=== PATIENT | female | born 1980 | race Caucasian/White ===

== ENCOUNTER 2021-12-26 06:24 | Emergency (ER) | payer OTHER, SELFPAY ==
--- NOTE | ~2021-12-26 | US_ITS ---
EXAMINATION: ULTRASOUND RENAL LEFT CLINICAL INFORMATION: Left flank pain. COMPARISON: CT from 01/11/2020 TECHNIQUE: Targeted sonographic evaluation of the left kidney only. FINDINGS: The left kidney is normal in size measuring 11 x 5.5 x 4.3 cm. There is normal shape and echogenicity. No hydronephrosis. No nephrolithiasis. No renal mass. US/US renal LT IMPRESSION: Normal left kidney.
--- NOTE | ~2021-12-26 | CT_ITS ---
EXAMINATION: CT ABDOMEN AND PELVIS WITHOUT CONTRAST CLINICAL INFORMATION: Left-sided abdominal pain COMPARISON: 01/11/2020 TECHNIQUE: Multidetector volumetric imaging was performed from the superior aspect of the liver through the pubic symphysis. Sagittal and coronal reformatted images were obtained on the technologist's workstation. This CT examination was performed using dose optimization techniques as appropriate, variously including the following: *Automated exposure control *Adjustment of mA and/or kV according to patient size (this includes techniques or standardized protocols for targeted exams where dose is matched to indication/reason for exam; i.e. extremities or head) *Use of iterative reconstruction technique DLP: 649 mGy-cm FINDINGS: LUNG BASES: Minimal bibasilar atelectasis. The visualized cardiac structures are unremarkable. LIVER, GALLBLADDER, AND BILIARY TREE: The liver is normal in size, shape, and attenuation. No focal hepatic lesion or biliary ductal dilatation is present. The gallbladder is unremarkable with no evidence of radiopaque gallstones, gallbladder wall thickening, or obvious pericholecystic inflammatory changes. PANCREAS: Unremarkable. SPLEEN: Unremarkable. ADRENAL GLANDS: Unremarkable. KIDNEYS AND URETERS: The kidneys are normal in size, shape, and attenuation. There is mild left hydroureteronephrosis. There are 2 calculi seen in the distal left ureter immediately proximal to the ureterovesicular junction. These measure 0.4 cm and 0.5 cm. Mild perinephric stranding on the left. There is a left lower pole 0.3 cm calculus is 10 cm from the posterior axillary line. Right lower pole 0.4 cm calculus which is 10 cm from the posterior axillary line. No right hydronephrosis. BLADDER: Unremarkable. GASTROINTESTINAL TRACT: The stomach is unremarkable. Normal caliber small bowel. No obstruction. Normal appendix. No colonic wall thickening or acute inflammation. No free air or free fluid. ABDOMINAL WALL: No significant hernia is appreciated. LYMPH NODES: Normal. VASCULAR: Normal caliber aorta with mild atherosclerotic calcification. PELVIC VISCERA: Anteverted uterus with IUD in place. No adnexal mass. OSSEOUS STRUCTURES: No acute or suspicious osseous abnormality. CT/CT abdomen pelvis wo con IMPRESSION: Mild left hydroureteronephrosis. There are 2 distal left ureteral calculi. Additional nonobstructing bilateral renal calculi noted. Fleischner guidelines were followed.
[2021-12-26 07:31] VITALS: BP 139/69; PULSE 73; RESP 16; TEMP 36.6; O2SAT 99; BMI 34.7
[2021-12-26 07:44] LABS: Basophils Percent Auto 0.4 % (0-2); Eosinophils Percent Auto 0.2 % (0-4); Hematocrit 41.9 % (37.0-47.0); Hemoglobin 13.8 g/dl (12.0-16.0); Imm Gran Abs Auto 0.04 X10*3/uL (0.00-0.03); Imm Gran Pct Auto 0.4 % (0.0-0.4); Lymphocytes Absolute Auto 0.5 X10*3/uL (1.2-4.9); MANUAL DIFF FLAG SCAN; Mean Corpuscular HGB Conc 32.9 g/dl (31.0-35.0); Mean Corpuscular Volume 85.2 fL (80.0-98.0); Mean Platelet Volume 9.3 fL (9.4-12.3); Monocytes Absolute Auto 0.4 X10*3/uL (0.1-1.2); Monocytes Percent Auto 3.5 % (2-11); Neutrophils Absolute Auto 9.3 x10*3/uL (2.0-8.3); Neutrophils Percent Auto 90.5 % (45-73); Platelet Count 214 X10*3/uL (160-400); Red Blood Count 4.92 X10*6/uL (4.20-5.50); Red Cell Distribution Width 12.7 % (11.0-16.0); SCAN SMEAR FLAG 1; White Blood Count 10.3 X10*3/uL (4.8-10.8)
[2021-12-26 07:54] VITALS: BP 133/76; PULSE 78; RESP 16; TEMP 36.9; O2SAT 100
[2021-12-26 08:01] LABS: Anion Gap 12 (12-20); Blood Urea Nitrogen 11 mg/dL (9-16); Calcium 9.3 mg/dL (8.4-10.2); Carbon Dioxide 27 mmol/L (22-29); Chloride 107 mmol/L (96-108); Creatinine Clr Calc Pharmacy 75.9; Estimated Glomerular Filt Rate > 60; Glucose Random 104 mg/dL (60-115); Potassium 4.7 mmol/L (3.3-5.1); Sodium 141 mmol/L (135-145)
[2021-12-26 08:04] LABS: SLIDE REVIEW VERIFIED
--- NOTE | 2021-12-26 08:25 | ED.ABDPAIN ---
HPI - Abdominal Pain General Chief Complaint: Back Pain/Injury Stated Complaint: kidney stones Time Seen by Provider: 12/26/21 08:13 Source: patient Mode of arrival: ambulatory Limitations: no limitations History of Present Illness HPI narrative: 41 yo female with hx of PCOS, kidney stones hx of ureteral stent, childhood leukemia, here with c/o abrupt onset L flank pain and n/v that woke her up around 4/5am this AM. Feels like a stone to her. MD elicited complaint: flank pain Pertinent past history: kidney stones Onset (ago): hour(s) (few) Pain Consistency: other (seems to have improved a little) Location: L flank Severity: moderate Quality: stabbing Radiation: LLQ Migration to: LLQ Exacerbating factors: nothing Relieving factors: nothing Context: history of similar episodes Associated symptoms: nausea, vomiting and diarrhea Related Data Home Medications Medication Instructions Recorded Confirmed albuterol sulfate 90 mcg/actuation 2 puff inhalation QID PRN 12/26/21 12/26/21 aerosol inhaler (ProAir HFA) Shortness Of Breath Or Wheezing fluticasone propionate 50 2 spray intranasal DAILY PRN 12/26/21 12/26/21 mcg/actuation nasal Allergy Symptoms spray,suspension loratadine 10 mg tablet (Claritin) 10 mg PO DAILY 12/26/21 12/26/21 montelukast 10 mg tablet 1 tab PO BEDTIME 12/26/21 12/26/21 naproxen sodium 220 mg tablet 220 mg PO Q12H PRN Pain 12/26/21 12/26/21 Previous Rx's Medication Instructions Recorded ketorolac 10 mg tablet 10 mg PO TID PRN pain 5 days #15 12/26/21 tabs ondansetron 4 mg disintegrating 4 mg PO Q8H PRN nausea and 12/26/21 tablet vomiting #20 tabs tamsulosin 0.4 mg capsule 0.4 mg PO DAILY 7 days #7 caps 12/26/21 tramadol 50 mg tablet 50 mg PO TID PRN pain 3 days #10 12/26/21 tabs Allergies Allergy/AdvReac Type Severity Reaction Status Date / Time Penicillins [PENICILLINS] Allergy Severe HIVES DIFF Verified 12/26/21 07:31 BREATHING prednisone [PREDNISONE] AdvReac Severe AGITATION Verified 12/26/21 07:31 Review of Systems Review of Systems Constitutional : No Weight loss, No Fever, No Chills ENT/Mouth : No sore throat, No Rhinorrhea Eyes: No Swelling, No Redness Cardiovascular : No Chest Pain, No SOB, NoEdema Respiratory : No Cough, No Sputum, No Wheezing Gastrointestinal : Positive Nausea, Positive Vomiting, pos Diarrhea, positive abdominal Pain, No Hematochezia, No Melena Genitourinary : No Dysuria, No Urinary Frequency, No Hematuria, No Urgency Musculoskeletal : No joint pain, No Myalgias, No Joint Swelling Skin : No Skin Lesions, No rash Neuro : No Weakness, No Numbness, No Dizziness, No Headache Psych : No Anxiety/Panic, No Depression Heme/Lymph: No Bruising, No Lymphadenopathy Endocrine : No Polyuria, No Polydipsia All other systems reviewed and are negative. [facility] Past Medical History Attestation statement: The following information was validated with the patient. Medical History Kidney stone PCOS (polycystic ovarian syndrome) Social History Social History Alcohol intake: current Alcohol intake frequency: holidays/special occasions only Patient Tobacco Use Status: Current someday Tobacco user Smoked in Last 30 Days: Yes Use of substances other than those prescribed or required for medical reasons: No Advance Directives: No Advance Directives Information Provided: No Physical Exam ED Vital Signs: Vital Signs - 24 hr 12/26/21 07:31 12/26/21 07:54 12/26/21 12:31 Temperature 97.9 F 98.5 F Pulse Rate 73 78 67 Respiratory Rate 16 16 14 Blood Pressure 139/69 133/76 122/75 Pulse Oximetry 99 100 100 Oxygen Delivery Method Room Air Room Air Room Air BMI result Body Mass Index 34.7 Appearance: Alert. Oriented X3. No acute distress. Eyes: Pupils equal, round and reactive to light. ENT: Pharynx normal. Neck: Normal inspection. Neck supple. CVS: Normal heart rate and rhythm. Pulses normal. Respiratory: No respiratory distress. Breath sounds normal. Abdomen: Soft and mild L sided abdominal ttp. Skin: Skin warm and dry. Normal skin color. Normal skin turgor. Extremities: No lower extremity edema. No calf ttp Neuro: Oriented X 3. No motor deficit. No sensory deficit. Course Course Course Narrative: CT scan ordered - US negative, cannot urinate pain well controlled stable for DC at this time can follow up with urology next week given precautions to return able to void MDM - Abdominal Pain MDM Narrative Medical decision making narrative: 41 yo female with hx of PCOS, kidney stones hx of ureteral stent, childhood leukemia here with L flank pain and n/v that feels like a stone to her. At this time labs, UA, US to evaluate for renal colic. IV toradol for pain ordered. Dispo per results and findings. Lab Data Result diagrams: 12/26/21 07:37 12/26/21 07:37 Labs: Lab Results 12/26/21 12/26/21 12/26/21 Range/Units 07:37 07:37 10:12 WBC 10.3 (4.8-10.8) X10*3/uL RBC 4.92 (4.20-5.50) X10*6/uL Hgb 13.8 (12.0-16.0) g/dl Hct 41.9 (37.0-47.0) % MCV 85.2 (80.0-98.0) fL MCH 28.0 (27.0-33.0) pg MCHC 32.9 (31.0-35.0) g/dl RDW 12.7 (11.0-16.0) % Plt Count 214 (160-400) X10*3/uL MPV 9.3 L (9.4-12.3) fL Immature Gran % (Auto) 0.4 (0.0-0.4) % Neut % (Auto) 90.5 H (45-73) % Lymph % (Auto) 5.0 L (20-40) % [place] % (Auto) 3.5 (2-11) % Eos % (Auto) 0.2 (0-4) % Baso % (Auto) 0.4 (0-2) % Lymph # (Auto) 0.5 L (1.2-4.9) X10*3/uL [place] # (Auto) 0.4 (0.1-1.2) X10*3/uL Eos # (Auto) 0.0 (0.0-0.4) X10*3/uL Baso # (Auto) 0.0 (0.0-0.2) X10*3/uL Abs Immat Gran (auto) 0.04 H (0.00-0.03) X10*3/uL Absolute Neuts (auto) 9.3 H (2.0-8.3) x10*3/uL Absolute Nucleated RBC 0.000 (0.0-0.012) X10*3/uL Nucleated RBC % (auto) 0.0 (0.0-0.2) /100WBC Smear Tech's Comments VERIFIED Sodium 141 (135-145) mmol/L Potassium 4.7 (3.3-5.1) mmol/L Chloride 107 (96-108) mmol/L Carbon Dioxide 27 (22-29) mmol/L Anion Gap 12 (12-20) BUN 11 (9-16) mg/dL Creatinine 0.87 (0.5-1.4) mg/dL Estim Creat Clear Calc 75.9 Estimated GFR > 60 Random Glucose 104 (60-115) mg/dL Calcium 9.3 (8.4-10.2) mg/dL Urine Color Yellow Urine Appearance Clear Urine pH 8.0 (5.0-8.0) Ur Specific [place] <= 1.005 (1.005-1.025) Urine Protein Negative (Neg-Trace) mg/dL Urine Glucose (UA) Negative (Negative) mg/dL Urine Ketones Negative (Negative) mg/dL Urine Blood Small (1+) H (Negative) Urine Nitrite Negative (Negative) Ur Leukocyte Esterase Negative (Negative) Urine RBC 0-2 (0-2) /HPF Urine WBC 0-5 (0-5) /HPF Ur Squamous Epith Cells 0-2 (0-2) /HPF Urine Bacteria None Seen (None Seen) Hyaline Casts 0-2 (0-2) /LPF Urine Test (NEGATIVE) 12/26/21 Range/Units 10:12 WBC (4.8-10.8) X10*3/uL RBC (4.20-5.50) X10*6/uL Hgb (12.0-16.0) g/dl Hct (37.0-47.0) % MCV (80.0-98.0) fL MCH (27.0-33.0) pg MCHC (31.0-35.0) g/dl RDW (11.0-16.0) % Plt Count (160-400) X10*3/uL MPV (9.4-12.3) fL Immature Gran % (Auto) (0.0-0.4) % Neut % (Auto) (45-73) % Lymph % (Auto) (20-40) % [place] % (Auto) (2-11) % Eos % (Auto) (0-4) % Baso % (Auto) (0-2) % Lymph # (Auto) (1.2-4.9) X10*3/uL [place] # (Auto) (0.1-1.2) X10*3/uL Eos # (Auto) (0.0-0.4) X10*3/uL Baso # (Auto) (0.0-0.2) X10*3/uL Abs Immat Gran (auto) (0.00-0.03) X10*3/uL Absolute Neuts (auto) (2.0-8.3) x10*3/uL Absolute Nucleated RBC (0.0-0.012) X10*3/uL Nucleated RBC % (auto) (0.0-0.2) /100WBC Smear Tech's Comments Sodium (135-145) mmol/L Potassium (3.3-5.1) mmol/L Chloride (96-108) mmol/L Carbon Dioxide (22-29) mmol/L Anion Gap (12-20) BUN (9-16) mg/dL Creatinine (0.5-1.4) mg/dL Estim Creat Clear Calc Estimated GFR Random Glucose (60-115) mg/dL Calcium (8.4-10.2) mg/dL Urine Color Urine Appearance Urine pH (5.0-8.0) Ur Specific [place] (1.005-1.025) Urine Protein (Neg-Trace) mg/dL Urine Glucose (UA) (Negative) mg/dL Urine Ketones (Negative) mg/dL Urine Blood (Negative) Urine Nitrite (Negative) Ur Leukocyte Esterase (Negative) Urine RBC (0-2) /HPF Urine WBC (0-5) /HPF Ur Squamous Epith Cells (0-2) /HPF Urine Bacteria (None Seen) Hyaline Casts (0-2) /LPF Urine Test NEGATIVE (NEGATIVE) Discharge Plan Discharge Clinical Impression: Ureterolithiasis Patient Disposition: Home, Self-Care Instructions: Renal Colic (ED), Ureteral Stones (ED) Additional Instructions: return to ED for any worsening symptoms or concerns if you develop fevers, worsening pain, unable to urinate please return if you do not feel like you have passed the stone by next Wednesday please call Urologist Prescriptions: New tamsulosin 0.4 mg capsule 0.4 mg PO DAILY 7 Days Qty: 7 0RF ondansetron 4 mg tablet,disintegrating 4 mg PO Q8H PRN (Reason: nausea and vomiting) Qty: 20 0RF ketorolac 10 mg tablet 10 mg PO TID PRN (Reason: pain) 5 Days Qty: 15 0RF Rx Instructions: do not take with other NSAIDs given IV dose of toradol in ED tramadol 50 mg tablet 50 mg PO TID PRN (Reason: pain) 3 Days Qty: 10 0RF No Action montelukast 10 mg tablet 1 tab PO BEDTIME albuterol sulfate [ProAir HFA] 90 mcg/actuation HFA aerosol inhaler 2 puff inhalation QID PRN (Reason: Shortness Of Breath Or Wheezing) fluticasone propionate 50 mcg/actuation spray,suspension 2 spray intranasal DAILY PRN (Reason: Allergy Symptoms) naproxen sodium 220 mg Tablet 220 mg PO Q12H PRN (Reason: Pain) loratadine [Claritin] 10 mg Tablet 10 mg PO DAILY Referrals: Hunter Traore MD [Physician] - (next week if not better) Stand Alone Forms: Work/School Release
[2021-12-26] MEDS: Ketorolac Tromethamine 30 MG/ML VIAL IVPUSH (08:54)
[2021-12-26] MEDS: Lactated Ringers 1,000 ML 999 ML IV (08:54)
[2021-12-26] MEDS: ondansetron HCL 4 MG/2 ML VIAL IVPUSH (08:54)
[2021-12-26 10:39] LABS: Appearance Urine Clear; Color Urine Yellow; Glucose Urine UA Negative (Negative); Leukocyte Esterase Urine Negative (Negative); Nitrite Urine Negative (Negative); Specific Gravity - Urine <= 1.005 (1.005-1.025); Urine Blood Small (1+) (Negative); Urine Ketones Negative (Negative); Urine Protein Negative (Neg-Trace)
[2021-12-26 10:41] LABS: UPreg QC Valid YES; Urine Pregnancy NEGATIVE (NEGATIVE)
--- NOTE | 2021-12-26 10:46 | PHA.MEDREC ---
Pharmacy Consult ? Medication Reconciliation Pharmacy has completed the medication reconciliation.
[2021-12-26 10:55] LABS: Bacteria Urine None Seen (None Seen); Hyaline Casts Urine 0-2 /LPF (0-2); RBC Urine 0-2 /HPF (0-2); Squamous Epithelial Cell Urine 0-2 /HPF (0-2); WBC Urine 0-5 /HPF (0-5)
[2021-12-26 12:31] VITALS: BP 122/75; PULSE 67; RESP 14; O2SAT 100
[2021-12-26] MEDS: Tamsulosin HCL 0.4 MG CAPSULE PO (12:46)
== END 2021-12-26 13:50 | disposition home or self-care (01) ==
PROVIDERS: Emergency Provider Emergency Medicine; PCP Internal Medicine
DX: N20.1 Calculus of ureter (principal); M54.50 Low back pain, unspecified; R11.2 Nausea with vomiting, unspecified; Z79.899 Other long term (current) drug therapy; F17.200 Nicotine dependence, unspecified, uncomplicated; Z71.6 Tobacco abuse counseling
CPT/HCPCS: 36415; 74176; 76775; 80048; 81001; 81025; 85025; 96361; 96374; 96375; 99284; J1885; J2405

== ENCOUNTER 2022-07-17 14:55 | Outpatient (REF) | payer OTHER, MEDICAID, SELFPAY ==
--- NOTE | ~2022-07-17 | US_ITS ---
EXAMINATION: US RETROPERITONEAL LIMITED (RENAL ONLY) CLINICAL INFORMATION: Calculus of kidney. COMPARISON: Ultrasound retroperitoneal limited (renal only) 12/26/2021. CT abdomen and pelvis 12/26/2021. Ultrasound abdomen 01/11/2020. TECHNIQUE: Real-time imaging of the kidneys. FINDINGS: RIGHT KIDNEY: 11.3 x 5.3 x 5.0 cm (SAG x AP x TRV). The kidney is normal in size, contour, and echogenicity. Renal cortical thickness is normal. No focal parenchymal lesions or hydronephrosis. Nonobstructive calculus in the lower pole measuring 0.5 cm and mid pole measuring 0.3 cm. LEFT KIDNEY: 11.6 x 5.2 x 4.4 cm (SAG x AP x TRV). The kidney is normal in size, contour, and echogenicity. Renal cortical thickness is normal. No focal parenchymal lesions or hydronephrosis. Nonobstructive calculus in the lower pole measuring 0.4 cm. US/US renal BI IMPRESSION: Nonobstructive bilateral renal calculi.
== END 2022-07-17 14:56 | disposition home or self-care (01) ==
LOC: HO.US 14:55
PROVIDERS: PCP Internal Medicine; Visit Provider Urology
DX: N20.0 Calculus of kidney (principal)
CPT/HCPCS: 76775

== ENCOUNTER → 2022-09-03 08:31 | Outpatient (BNVA) | payer OTHER, MEDICAID, SELFPAY | PROVIDERS: PCP Internal Medicine; Visit Provider Urology ==

== ENCOUNTER 2022-10-09 08:53 | Emergency (ER) | payer OTHER, SELFPAY ==
[2022-10-09 08:56] VITALS: BP 152/87; PULSE 100; RESP 19; TEMP 36.6; O2SAT 100; BMI 33.9
--- NOTE | 2022-10-09 09:10 | ED_ITS ---
HPI - Female Genitourinary General Chief complaint: Urogenital-Female Stated complaint: kidney stones Time Seen by Provider: 10/09/22 09:06 Source: patient Mode of arrival: ambulatory Limitations: no limitations History of Present Illness HPI Narrative: Patient history of kidney stone status post lithotripsy had ultrasound done in 07/23 when only stones in the kidneys were seen comes here for last 24 hours of dysuria frequency burning sensation and right flank pain no nausea no vomiting no hematuria no fever or chills Related Data Home Medications Medication Instructions Recorded Confirmed albuterol sulfate 90 mcg/actuation 2 puff inhalation QID PRN 12/26/21 01/28/22 aerosol inhaler (ProAir HFA) Shortness Of Breath Or Wheezing fluticasone propionate 50 2 spray intranasal DAILY PRN 12/26/21 01/28/22 mcg/actuation nasal Allergy Symptoms spray,suspension loratadine 10 mg tablet (Claritin) 10 mg PO DAILY 12/26/21 01/28/22 montelukast 10 mg tablet 1 tab PO BEDTIME 12/26/21 01/28/22 naproxen sodium 220 mg tablet 220 mg PO Q12H PRN Pain 12/26/21 01/28/22 methocarbamol 750 mg tablet 750 mg PO BID 01/26/22 01/28/22 Previous Rx's Medication Instructions Recorded ondansetron 4 mg disintegrating 4 mg PO Q8H PRN nausea and 12/26/21 tablet vomiting #20 tabs tamsulosin 0.4 mg capsule 0.4 mg PO DAILY 7 days #7 caps 01/01/22 pyridoxine (vitamin B6) 100 mg 100 mg PO DAILY 90 days #90 tabs 01/28/22 tablet tramadol 50 mg tablet 50 mg PO Q6H PRN pain #20 tabs 10/09/22 Allergies Allergy/AdvReac Type Severity Reaction Status Date / Time Penicillins [PENICILLINS] Allergy Severe HIVES DIFF Verified 10/09/22 08:56 BREATHING prednisone [PREDNISONE] AdvReac Severe AGITATION Verified 10/09/22 08:56 Review of Systems Review of Systems: Yes all other systems are reviewed and are negative PMFSH Past Medical History Medical History Kidney stone PCOS (polycystic ovarian syndrome) Social History Social History Alcohol intake: current Alcohol intake frequency: does not drink Patient Tobacco Use Status: Current someday Tobacco user Smoked in Last 30 Days: Yes Use of substances other than those prescribed or required for medical reasons: No Advance Directives: No Patient : No Physical Exam Vital Signs: Vital Signs: Last Vital Signs Temp 98 F 10/09/22 08:56 Pulse 100 10/09/22 08:56 Resp 19 10/09/22 08:56 BP 152/87 H 10/09/22 08:56 Pulse Ox 100 10/09/22 08:56 O2 Del Method Room Air 10/09/22 08:56 BMI result Body Mass Index 33.9 Appearance: Alert. Oriented X3. No acute distress. ENT: Pharynx normal. Oral Mucosa moist Neck: Normal inspection. Neck supple. CVS: Normal heart rate and rhythm. Pulses normal. Respiratory: No respiratory distress. Equal air entry bilateral, no wheezing/rales/rhonchi Abdomen: Soft and nontender. Bowel sounds are present, no mass palpable, mild right CVA tenderness Skin: Skin warm and dry. Normal skin color. Normal skin turgor. Extremities: No lower extremity edema. No calf tenderness Neuro: Oriented X 3. No motor deficit. Medications Administered Discontinued Medications Generic Name Dose Route Start Last Admin Trade Name Freq PRN Reason Stop Dose Admin Ondansetron HCl 4 mg 10/09/22 09:18 10/09/22 09:26 Ondansetron Odt 4 Mg Tab.Rapdis TRANSLINGU 10/09/22 09:19 4 mg ONCE ONE Administration Oxycodone HCl 10 mg 10/09/22 09:18 10/09/22 09:26 Oxycodone Hcl Immed Release 5 Mg Tablet PO 10/09/22 09:19 5 mg ONCE ONE Administration Tamsulosin HCl 0.4 mg 10/09/22 09:18 10/09/22 09:27 Tamsulosin Hcl 0.4 Mg Capsule PO 10/09/22 09:19 0.4 mg ONCE ONE Administration Medical Decision Making Admission/Observation Patient UA negative for blood or UTI patient feels comfortable after pain management will discharge patient home on tramadol likely patient has renal colic/passed kidney stone Lab Data [facility] Lab Attestation statement: I reviewed the patient's lab results. Labs: Lab Results 10/09/22 Range/Units 09:29 Urine Color Yellow Urine Appearance Cloudy Urine pH 7.5 (5.0-9.0) Ur Specific [place] 1.020 (1.005-1.025) Urine Protein Negative (Neg-Trace) mg/dL Urine Glucose (UA) Negative (Negative) mg/dL Urine Ketones Negative (Negative) mg/dL Urine Blood Negative (Negative) Urine Nitrite Negative (Negative) Ur Leukocyte Esterase Negative (Negative) Discharge Plan Discharge Clinical Impression: Renal colic on right side Patient Disposition: Home, Self-Care Instructions: Renal Colic (ED) Additional Instructions: At this time there is no convincing lab showed suggestive of obstructive kidney stone Take pain medication as prescribed and follow-up with urologist Report to the ER if worsening of the pain Prescriptions: New tramadol 50 mg tablet 50 mg PO Q6H PRN (Reason: pain) Qty: 20 0RF No Action tamsulosin 0.4 mg capsule 0.4 mg PO DAILY 7 Days Qty: 7 0RF montelukast 10 mg tablet 1 tab PO BEDTIME albuterol sulfate [ProAir HFA] 90 mcg/actuation HFA aerosol inhaler 2 puff inhalation QID PRN (Reason: Shortness Of Breath Or Wheezing) fluticasone propionate 50 mcg/actuation spray,suspension 2 spray intranasal DAILY PRN (Reason: Allergy Symptoms) naproxen sodium 220 mg Tablet 220 mg PO Q12H PRN (Reason: Pain) loratadine [Claritin] 10 mg Tablet 10 mg PO DAILY ondansetron 4 mg tablet,disintegrating 4 mg PO Q8H PRN (Reason: nausea and vomiting) Qty: 20 0RF methocarbamol 750 mg tablet 750 mg PO BID pyridoxine (vitamin B6) 100 mg tablet 100 mg PO DAILY 90 Days Qty: 90 1RF
--- NOTE | 2022-10-09 09:19 | PC.NURSE ---
Pt reports urinary sx x 24 hours including, urgency and frequency without completely emptying bladder with zinging pain up to right flank. Denies fevers or chills. States nausea and little diarrhea. Has Lithotripsy scheduled for November 04 for known stones with Dr Dupont. Juanita pwd. Speaking full sentences. Plan for UA and PO meds at this time
[2022-10-09] MEDS: Ondansetron ODT 4 MG TAB.RAPDIS TRANSLINGU (09:26)
[2022-10-09] MEDS: oxyCODONE HCl Immed Release 5 MG TABLET 10 MG PO (09:26)
[2022-10-09] MEDS: Tamsulosin HCL 0.4 MG CAPSULE PO (09:27)
[2022-10-09 09:51] LABS: Appearance Urine Cloudy; Color Urine Yellow; Glucose Urine UA Negative (Negative); Leukocyte Esterase Urine Negative (Negative); Nitrite Urine Negative (Negative); PH 7.5 (5.0-9.0); Urine Blood Negative (Negative); Urine Ketones Negative (Negative); Urine Protein Negative (Neg-Trace)
== END 2022-10-09 11:51 | disposition home or self-care (01) ==
PROVIDERS: Emergency Provider Internal Medicine; PCP Internal Medicine
DX: K80.50 Calculus of bile duct without cholangitis or cholecystitis without obstruction (principal); F17.210 Nicotine dependence, cigarettes, uncomplicated; Z71.6 Tobacco abuse counseling; Z79.899 Other long term (current) drug therapy
CPT/HCPCS: 81003; 99283; 99284

== ENCOUNTER 2022-12-21 08:14 | Outpatient (REF) | payer OTHER, SELFPAY ==
--- NOTE | ~2022-12-21 | CT_ITS ---
EXAMINATION: CT ABDOMEN AND PELVIS WITHOUT CONTRAST CLINICAL INFORMATION: Kidney stone COMPARISON: Previous CT of the abdomen and pelvis December 2021 and renal ultrasound July 2022 TECHNIQUE: Multidetector volumetric imaging was performed from the superior aspect of the liver through the pubic symphysis. Sagittal and coronal reformatted images were obtained on the technologist's workstation. This CT examination was performed using dose optimization techniques as appropriate, variously including the following: *Automated exposure control *Adjustment of mA and/or kV according to patient size (this includes techniques or standardized protocols for targeted exams where dose is matched to indication/reason for exam; i.e. extremities or head) *Use of iterative reconstruction technique DLP: 516 mGy-cm FINDINGS: LUNG BASES: The visualized lung bases are unremarkable. LIVER, GALLBLADDER, AND BILIARY TREE: The liver is normal in size, shape, and attenuation. No focal hepatic lesion or biliary ductal dilatation is present. The gallbladder is unremarkable with no evidence of radiopaque gallstones, gallbladder wall thickening, or obvious pericholecystic inflammatory changes. PANCREAS: Unremarkable. SPLEEN: Unremarkable. ADRENAL GLANDS: Unremarkable. KIDNEYS AND URETERS: Small 1 to 2 mm stones in the mid and lower pole of the right kidney. The left kidney is normal. No hydronephrosis, ureteral dilatation or ureteral stone. BLADDER: Unremarkable. GASTROINTESTINAL TRACT: The small and large bowel are unremarkable. The appendix is unremarkable. ABDOMINAL WALL: No significant hernia is appreciated. LYMPH NODES: Normal. VASCULAR: Unremarkable. PELVIC VISCERA: IUD in the uterus in satisfactory position. OSSEOUS STRUCTURES: Degenerative disc changes at L5-S1. CT/CT abdomen pelvis wo IV con IMPRESSION: Small right renal stones. Fleischner guidelines were followed.
== END 2022-12-21 08:15 | disposition home or self-care (01) ==
LOC: HO.CT 08:14
PROVIDERS: PCP Internal Medicine; Visit Provider Urology
DX: N20.0 Calculus of kidney (principal)
CPT/HCPCS: 74176

== ENCOUNTER 2023-10-07 20:43 | Emergency (ER) | payer OTHER, SELFPAY ==
--- NOTE | ~2023-10-07 | US_ITS ---
EXAMINATION: US VENOUS ULTRASOUND WITH DOPPLER LOWER EXTREMITY, RIGHT CLINICAL INFORMATION: Bridger seen, swelling, pain. COMPARISON: None available. TECHNIQUE: Ultrasound of the deep veins is performed from the hip to the calf with compression sonography and color and pulse Doppler assessment. Spectral analysis with color-flow imaging is performed. FINDINGS: There is normal venous compression and respiratory variation and augmented flow. The visualized common femoral vein, superficial femoral vein, profunda femoral vein, popliteal vein, and the trifurcation region shows no evidence of deep venous thrombosis. There is no significant popliteal fossa cyst. If the patient's symptoms persist, followup ultrasound in 5 days 7 days might be of value to exclude proximal propagation from a non-visualized calf vein. US/US venous duplex LE RT IMPRESSION: No DVT demonstrated in the right lower extremity.
--- NOTE | ~2023-10-07 | XR_ITS ---
X-RAY RIGHT ANKLE AND RIGHT FOOT CLINICAL HISTORY: Bruising. COMPARISON: No relevant prior studies are available for comparison. TECHNIQUE: 2 views of the right ankle and 3 views of the right foot. FINDINGS: Soft tissue swelling more noticeable in the medial right ankle and plantar surface of the heel. No acute osseous abnormalities. No fractures or malalignment. No unexpected radiopaque foreign bodies. XR/XR foot RT min 3V IMPRESSION: Soft tissue swelling but no acute osseous abnormalities. No unexpected radiopaque foreign bodies.
--- NOTE | ~2023-10-07 | XR_ITS ---
X-RAY RIGHT ANKLE AND RIGHT FOOT CLINICAL HISTORY: Bruising. COMPARISON: No relevant prior studies are available for comparison. TECHNIQUE: 2 views of the right ankle and 3 views of the right foot. FINDINGS: Soft tissue swelling more noticeable in the medial right ankle and plantar surface of the heel. No acute osseous abnormalities. No fractures or malalignment. No unexpected radiopaque foreign bodies. XR/XR ankle RT min 3V IMPRESSION: Soft tissue swelling but no acute osseous abnormalities. No unexpected radiopaque foreign bodies.
[2023-10-07 20:48] VITALS: BP 141/95; PULSE 80; RESP 18; TEMP 36.4; O2SAT 100; BMI 35.6
--- NOTE | 2023-10-07 20:48 | ED.LOWEXIN ---
HPI - Extremity Injury (Lower) General Chief Complaint: Extremity Injury, Lower Stated Complaint: right ankle bruised and swollen Time Seen by Provider: 10/07/23 23:08 Source: patient Mode of arrival: ambulatory Limitations: no limitations History of Present Illness ED Provider: ajay BYRNE Narrative: Patient noticed bruise on the right ankle with slight tenderness does not know any injury before my evaluation patient had detailed workup done including x-ray venous Doppler and blood which was negative has noticed factor for DVT no calf tenderness patient ambulatory and taking naproxen for pain Related Data Home Medications ?Medication ?Instructions ?Recorded ?Confirmed albuterol sulfate 90 mcg/actuation 2 puff inhalation QID PRN 12/26/21 01/28/22 aerosol inhaler (ProAir HFA) Shortness Of Breath Or Wheezing fluticasone propionate 50 2 spray intranasal DAILY PRN 12/26/21 01/28/22 mcg/actuation nasal Allergy Symptoms spray,suspension loratadine 10 mg tablet (Claritin) 10 mg PO DAILY 12/26/21 01/28/22 montelukast 10 mg tablet 1 tab PO BEDTIME 12/26/21 01/28/22 naproxen sodium 220 mg tablet 220 mg PO Q12H PRN Pain 12/26/21 01/28/22 methocarbamol 750 mg tablet 750 mg PO BID 01/26/22 01/28/22 Previous Rx's ?Medication ?Instructions ?Recorded ondansetron 4 mg disintegrating 4 mg PO Q8H PRN nausea and 12/26/21 tablet vomiting #20 tabs tamsulosin 0.4 mg capsule 0.4 mg PO DAILY 7 days #7 caps 01/01/22 pyridoxine (vitamin B6) 100 mg 100 mg PO DAILY 90 days #90 tabs 01/28/22 tablet tramadol 50 mg tablet 50 mg PO Q6H PRN pain #20 tabs 10/09/22 Allergies Allergy/AdvReac Type Severity Reaction Status Date / Time Penicillins [PENICILLINS] Allergy Severe HIVES DIFF Verified 10/07/23 20:53 BREATHING prednisone [PREDNISONE] AdvReac Severe AGITATION Verified 10/07/23 20:53 Review of Systems Review of Systems: Yes all other systems are reviewed and are negative PMFSH Past Medical History Medical History PCOS (polycystic ovarian syndrome) Kidney stone Social History Social History Alcohol intake: current Alcohol intake frequency: does not drink Patient Tobacco Use Status: Current someday Tobacco user Advance Directives: No Advance Directives Information Provided: Yes Do you have a plan to hurt others: No Plan Physical Exam Vital Signs: Vital Signs: Last Vital Signs Temp 97.5 F 10/07/23 20:48 Pulse 80 10/07/23 20:48 Resp 18 10/07/23 20:48 BP 141/95 H 10/07/23 20:48 Pulse Ox 100 10/07/23 20:48 O2 Del Method Room Air 10/07/23 20:48 BMI result Body Mass Index 35.6 Appearance: Alert. Oriented X3. No acute distress. ENT: Pharynx normal. Oral Mucosa moist Neck: Normal inspection. Neck supple. CVS: Normal heart rate and rhythm. Pulses normal. Respiratory: No respiratory distress. Equal air entry bilateral, Skin: Skin warm and dry. Normal skin color. Normal skin turgor. Extremities: No lower extremity edema. No calf tenderness slight bruising on the medial aspect of the right ankle no bony tenderness no deformity Neuro: Oriented X 3. No motor deficit. Course Course Course Narrative: This is a Rapid Medical Examination (RME) performed by Zac Mendez PA-C in triage. Full HPI, ROS, assessment and treatment plan per primary provider in the Main ED. 43 yo female hx HTN (did not take meds today), current tobacco smoker presents with atraumatic right ankle pain/bruising/swelling since yesterday. denies trauma/ injury. reports bruise and pain moving up the leg into the calf now. no hx of VTE. not on AC. denies cp, sob, hemoptysis. admits to sedentary job working transport. noted ecchymosis to medial aspect of right foot/ ankle. right calf ttp. ambulating w/ steady gait. Plan: labs, xr, venous duplex ordered Medical Decision Making Lab Data [facility] Lab Attestation statement: I reviewed the patient's lab results. 10/07/23 22:40 10/07/23 22:40 Labs: Lab Results 10/07/23 Range/Units 22:40 WBC 7.0 (4.8-10.8) X10*3/uL RBC 4.55 (4.20-5.50) X10*6/uL Hgb 13.1 (12.0-16.0) g/dl Hct 39.2 (37.0-47.0) % MCV 86.2 (80.0-98.0) fL MCH 28.8 (27.0-33.0) pg MCHC 33.4 (31.0-35.0) g/dl RDW 13.2 (11.0-16.0) % Plt Count 214 (160-400) X10*3/uL MPV 9.2 L (9.4-12.3) fL Immature Gran % (Auto) 0.3 (0.0-0.4) % Neut % (Auto) 59.6 (45-73) % Lymph % (Auto) 32.2 (20-40) % [place] % (Auto) 5.4 (2-11) % Eos % (Auto) 1.9 (0-4) % Baso % (Auto) 0.6 (0-2) % Lymph # (Auto) 2.3 (1.2-4.9) X10*3/uL [place] # (Auto) 0.4 (0.1-1.2) X10*3/uL Eos # (Auto) 0.1 (0.0-0.4) X10*3/uL Baso # (Auto) 0.0 (0.0-0.2) X10*3/uL Abs Immat Gran (auto) 0.02 (0.00-0.03) X10*3/uL Absolute Neuts (auto) 4.2 (2.0-8.3) x10*3/uL Absolute Nucleated RBC 0.000 (0.0-0.012) X10*3/uL Nucleated RBC % (auto) 0.0 (0.0-0.2) /100WBC Sodium 143 (135-145) mmol/L Potassium 3.9 (3.3-5.1) mmol/L Chloride 109 H (96-108) mmol/L Carbon Dioxide 25 (22-29) mmol/L Anion Gap 13 (12-20) BUN 11 (9-16) mg/dL Creatinine 0.72 (0.5-1.4) mg/dL Estim Creat Clear Calc 91.0 Estimated GFR > 60 Random Glucose 106 (60-115) mg/dL Calcium 9.2 (8.4-10.2) mg/dL Magnesium 2.2 (1.6-2.6) mg/dL Total Bilirubin 0.2 (0.0-1.0) mg/dL AST 16 (5-31) U/L ALT 18 (0-31) U/L Alkaline Phosphatase 92 (39-117) U/L Total Protein 7.0 (6.5-8.0) g/dL Albumin 4.2 (3.5-5.0) g/dL Lipase 21 (8-78) U/L Beta HCG, Quant < 2 mIU/mL Independent Interpretation I performed an independent interpretation of an: Plain X-Ray and Ultrasound Radiology Impression Discussion of test interpretation with radiology: I have reviewed the radiologist's reading. Discharge Plan Discharge Clinical Impression: Ankle sprain and strain Patient Disposition: Home, Self-Care Instructions: Ankle Sprain (ED) Additional Instructions: Your x-rays negative for fracture , labs are stable Vicente wrap for support and continue to take naproxen for pain Prescriptions: No Action tamsulosin 0.4 mg capsule 0.4 mg PO DAILY 7 Days Qty: 7 0RF montelukast 10 mg tablet 1 tab PO BEDTIME albuterol sulfate [ProAir HFA] 90 mcg/actuation HFA aerosol inhaler 2 puff inhalation QID PRN (Reason: Shortness Of Breath Or Wheezing) fluticasone propionate 50 mcg/actuation spray,suspension 2 spray intranasal DAILY PRN (Reason: Allergy Symptoms) naproxen sodium 220 mg Tablet 220 mg PO Q12H PRN (Reason: Pain) loratadine [Claritin] 10 mg Tablet 10 mg PO DAILY ondansetron 4 mg tablet,disintegrating 4 mg PO Q8H PRN (Reason: nausea and vomiting) Qty: 20 0RF tramadol 50 mg tablet 50 mg PO Q6H PRN (Reason: pain) Qty: 20 0RF methocarbamol 750 mg tablet 750 mg PO BID pyridoxine (vitamin B6) 100 mg tablet 100 mg PO DAILY 90 Days Qty: 90 1RF Print Language: Persian
[2023-10-07 22:48] LABS: MANUAL DIFF FLAG NO
[2023-10-07 22:49] LABS: Basophils Percent Auto 0.6 % (0-2); Eosinophils Absolute Auto 0.1 X10*3/uL (0.0-0.4); Eosinophils Percent Auto 1.9 % (0-4); Hematocrit 39.2 % (37.0-47.0); Hemoglobin 13.1 g/dl (12.0-16.0); Imm Gran Abs Auto 0.02 X10*3/uL (0.00-0.03); Imm Gran Pct Auto 0.3 % (0.0-0.4); Lymphocytes Absolute Auto 2.3 X10*3/uL (1.2-4.9); Lymphocytes Percent Auto 32.2 % (20-40); Mean Corpuscular HGB Conc 33.4 g/dl (31.0-35.0); Mean Corpuscular Hemoglobin 28.8 pg (27.0-33.0); Mean Corpuscular Volume 86.2 fL (80.0-98.0); Mean Platelet Volume 9.2 fL (9.4-12.3); Monocytes Absolute Auto 0.4 X10*3/uL (0.1-1.2); Monocytes Percent Auto 5.4 % (2-11); Neutrophils Absolute Auto 4.2 x10*3/uL (2.0-8.3); Neutrophils Percent Auto 59.6 % (45-73); Platelet Count 214 X10*3/uL (160-400); Red Blood Count 4.55 X10*6/uL (4.20-5.50); Red Cell Distribution Width 13.2 % (11.0-16.0)
[2023-10-07 23:08] LABS: Alanine Aminotransferase 18 U/L (0-31); Albumin Level 4.2 g/dL (3.5-5.0); Alkaline Phosphatase 92 U/L (39-117); Anion Gap 13 (12-20); Aspartate Amino Transferase 16 U/L (5-31); Bilirubin Total 0.2 mg/dL (0.0-1.0); Blood Urea Nitrogen 11 mg/dL (9-16); Calcium 9.2 mg/dL (8.4-10.2); Carbon Dioxide 25 mmol/L (22-29); Chloride 109 mmol/L (96-108); Estimated Glomerular Filt Rate > 60; Glucose Random 106 mg/dL (60-115); Lipase 21 U/L (8-78); Magnesium 2.2 mg/dL (1.6-2.6); Potassium 3.9 mmol/L (3.3-5.1); Sodium 143 mmol/L (135-145)
[2023-10-07 23:11] LABS: HCG Quantitative < 2 mIU/mL
[2023-10-07 23:41] VITALS: BP 145/78; PULSE 75; RESP 14; TEMP 36.2; O2SAT 99
[2023-10-07 23:43] VITALS: BP 145/78; PULSE 75; RESP 14; TEMP 36.2; O2SAT 99
--- NOTE | 2023-10-07 23:43 | PC.NURSE ---
jordyn wrap applied per provider
== END 2023-10-07 23:43 | disposition home or self-care (01) ==
PROVIDERS: Physician Assistant Medical; Emergency Provider Internal Medicine; PCP Internal Medicine
DX: S93.401A Sprain of unspecified ligament of right ankle, initial encounter (principal); R60.0 Localized edema; R10.2 Pelvic and perineal pain; M25.571 Pain in right ankle and joints of right foot; X58.XXXA Exposure to other specified factors, initial encounter; Y93.9 Activity, unspecified; Y92.9 Unspecified place or not applicable; Y99.8 Other external cause status; Z79.899 Other long term (current) drug therapy
CPT/HCPCS: 36415; 73610; 73630; 80053; 83690; 83735; 84702; 85025; 93971; 99283; 99284